=== PATIENT | female | born 1960 | race Caucasian/White ===

== ENCOUNTER 2019-04-11 13:33 | Outpatient (CLI) | payer BC, OTHER, SELFPAY ==
--- NOTE | ~2019-04-11 | MM_ITS ---
EXAMINATION: MM scrn angelika implant BI w soni HISTORY: Screening mammogram TECHNIQUE: Craniocaudal and mediolateral oblique 3-D tomosynthesis images with implant displacement a nd synthetic 2-D images were generated. Craniocaudal and mediolateral oblique views of the breasts wi thout implant displacement were obtained using full field digital mammography. CAD analysis was submi tted and interpreted. COMPARISON: 03/21/2018, 11/30/2016, 05/29/2015 bilateral implant digital screening mammogram examination s BREAST PARENCHYMAL COMPOSITION: The breasts are heterogeneously dense, which may obscure small masses . FINDINGS: Status post bilateral augmentation mammoplasty.. Bilateral benign calcifications are noted. There is no evidence of suspicious mass, calcification, or architectural distortion to suggest malignancy in either breast. There has been no suspicious interv al change. IMPRESSION: 1. No mammographic evidence of malignancy. 2. Recommend routine screening mammography in one year. BI-RADS Category 2: Benign finding(s). Reviewed, dictated and finalized at location A. APPER
== END 2019-04-11 13:34 | disposition home or self-care (01) ==
LOC: ANHIMG 13:37
PROVIDERS: PCP Internal Medicine; Visit Provider Obstetrics & Gynecology
DX: Z12.31 Encounter for screening mammogram for malignant neoplasm of breast (principal)
CPT/HCPCS: 77063; 77067

== ENCOUNTER 2019-09-05 14:42 | Outpatient (CLI) | payer OTHER, SELFPAY ==
--- NOTE | ~2019-09-05 | XR_ITS ---
XR foot RT min 3V DATE: 09/05/2019 15:05 INDICATION: Right metatarsal pain for one to 2 months TECHNIQUE: 4 views COMPARISON: None FINDINGS: There is a small plantar calcaneal spur. No fracture or dislocation, periosteal reaction or bone destruction. IMPRESSION: Small plantar calcaneal spur Reviewed, dictated and finalized at location B.
== END 2019-09-05 14:43 | disposition home or self-care (01) ==
PROVIDERS: PCP Internal Medicine; Visit Provider Internal Medicine
DX: M79.671 Pain in right foot (principal); M77.31 Calcaneal spur, right foot
CPT/HCPCS: 73630

== ENCOUNTER → 2020-01-23 09:23 | Outpatient (CLI) | payer OTHER, SELFPAY ==
--- NOTE | ~2020-01-23 | MR_ITS ---
EXAMINATION: MR ankle RT wo con DATE: 01/23/2020 10:02 INDICATION: Fracture of anterior tendon, right foot. Right ankle pain. TECHNIQUE: Magnetic resonance imaging (MRI) of the right ankle was performed without intravenous cont rast. Sequences included sagittal PD-weighted FS FSE, sagittal PD-weighted FSE, coronal PD-weighted F S FSE, coronal PD-weighted FSE, axial PD-weighted FS FSE, and axial PD-weighted FSE. COMPARISON: Right foot radiographs 09/05/2019 FINDINGS: Medial ankle ligaments: The superficial and deep components of the deltoid ligament are normal. Lateral ankle ligaments: There is an old avulsion fracture of anteroinferior aspect of lateral malleolus at the attachment of anterior talofibular ligament. Posterior talofibular ligament is normal. There are changes of prior s prain of an calcaneofibular ligament characterized with thickening and increased signal intensity. Th ere are changes of prior sprain of anterior tibiofibular ligament characterized by thickening and inc reased signal intensity. Posterior tibiofibular ligament is normal. Tendons: There are longitudinal split tears of peroneus brevis tendon and peroneus longus tendon. There is mil d Achilles tendinopathy. The medial ankle tendons are normal. There is a complete tear of distal ante rior tibial tendon with 4-5 cm gap. A skin marker overlies this area. There is a small hematoma adjac ent to the torn distal tendon. Plantar fascia: There is thickening and increased signal involving central band of plantar fascia with an enthesophyt e at the calcaneal attachment. Bones/other: There is mild osteoarthritis of ankle joint and some of the midfoot joints. There is moderate osteoar thritis of the naviculocuneiform joint with bone marrow edema in the navicular and intermediate cunei form. Fluid: There is no joint effusion. IMPRESSION: 1. Complete tear of anterior tibial tendon. 2. Longitudinal split tears of peroneus brevis tendon and peroneus longus tendon. 3. Polyarticular osteoarthritis. 4. Plantar fasciitis. Reviewed, dictated and finalized at location A. T CLOSER IMPRESSION: 1. Complete tear of anterior tibial tendon. 2. Longitudinal split tears of peroneus brevis tendon and peroneus longus tendo n. 3. Polyarticular osteoarthritis. 4. Plantar fasciitis.
== END ==
PROVIDERS: PCP Internal Medicine; Visit Provider Podiatrist Foot & Ankle Surgery
DX: S86.211A Strain of muscle(s) and tendon(s) of anterior muscle group at lower leg level, right leg, initial encounter (principal); S96.811A Strain of other specified muscles and tendons at ankle and foot level, right foot, initial encounter; M19.071 Primary osteoarthritis, right ankle and foot; M72.2 Plantar fascial fibromatosis
CPT/HCPCS: 73721

== ENCOUNTER 2020-01-29 01:59 | Outpatient (CLI) | payer OTHER, SELFPAY ==
[2020-01-29 19:16] LABS: SARS-CoV-2 RNA PCR Negative
== END 2020-01-29 02:00 | disposition home or self-care (01) ==
LOC: ANHCOVIDDT 02:00
PROVIDERS: PCP Internal Medicine; Visit Provider Podiatrist Foot & Ankle Surgery
DX: Z01.812 Encounter for preprocedural laboratory examination (principal); Z20.828 Contact with and (suspected) exposure to other viral communicable diseases
CPT/HCPCS: 87635; C9803; U0003

== ENCOUNTER 2020-02-01 01:27 | Day surgery (SDC) | payer OTHER, SELFPAY ==
[2020-01-29 09:45] VITALS: BMI 25.6
--- NOTE | ~2020-02-01 | XR_ITS ---
EXAMINATION: XR surgery orthopedic DATE: 02/01/2020 16:17 INDICATION: Right foot arthrodesis TECHNIQUE: 4 fluoroscopic spot images of the right midfoot were obtained during procedure performed soy Sargent. Radiologist was not present for the imaging or procedure. The amount of fluoroscopy t ben used during this procedure was 0.5 minutes. COMPARISON: None. FINDINGS: First tarsal metatarsal arthrodesis with fixation with a pair of dorsal christina. Alignment appears to remain essentially anatomic. No fractures identified. Remaining joint spaces appear normal. IMPRESSION: 1. Right first tarsal metatarsal arthrodesis with staple fixation. See procedure note for further det ail. Reviewed, dictated and finalized at location A. ER WELDER IMPRESSION: 1. Right first tarsal metatarsal arthrodesis with staple fixation. See procedur e note for further detail.
[2020-02-01 11:35] VITALS: BP 148/81; PULSE 74; RESP 20; TEMP 37.3; O2SAT 100
[2020-02-01] MEDS: LACTATED RINGERS 1,000 ML 30 ML IV CONT ×2 (11:53→17:02)
--- NOTE | 2020-02-01 11:57 | WPDANESEPPF ---
Anes - Initial Pre Proc Eval Procedure: Operation Date: 02/01/20 13:30 Proposed Procedures p Repair Of Tibialis Anterior Tendon Right Foot - Fabien Sargent JR, MD s Arthrodesis of Right Medial Navicular Cuneiform Joint - Fabien Sargent JR, MD Date/Time: 02/01/20 11:57 Surgeon: Fabien Sargent JR, MD Pre Op Diagnosis: Rupture Of Tibialis Anterior Tendon Right Foot,Art Patient Data Age: 59 Gender: F Height: 5 ft 10 in Weight: 81 kg Allergies Allergy/AdvReac Type Severity Reaction Status Date / Time No Known Allergies Allergy Verified 01/29/20 09:43 Home Medications Medication Instructions Recorded Confirmed Type cholecalciferol (vitamin D3) 25 25 mcg PO DAILY 10/11/19 01/29/20 History mcg (1,000 unit) capsule tramadol 50 mg tablet 100 mg PO Q4H PRN #120 tablet 01/14/20 01/29/20 Rx Patient hx anesthesia problems: none Family hx anesthesia problems: none PMFSH Past Medical History Medical History BMI 26.0-26.9,adult DJD (degenerative joint disease), multiple sites Encounter for routine adult health examination without abnormal findings FHx: type 2 diabetes mellitus Hematoma Hx of colonic polyps 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 Peripheral neuropathy Right foot pain Tarsal tunnel syndrome of right side Trochanteric bursitis, right hip Varicose veins of both lower extremities Surgical History Surgical History H/O spinal fusion (~01/2019) 2019 Family History Family History Sibling Family history of obesity Patient's sister is in good health Family history of elevated blood lipids Family history of diabetes mellitus in first degree relative Mother Family history of malignant neoplasm of ovary Family history of arthritis Father Family history of malignant neoplasm Social History Social History Years smoked: 5 Smoking status: Former smoker Additional smoking assessment comments: 1 PACK/WEEK X 5 YEARS IN HER 20'S Alcohol intake: current Alcohol use details: 1-2 DRINKS/MONTH Substance use: never Living arrangements: alone Spiritual care concerns: No Anes - Eval Final PreProcedure Day of Procedure 02/01/20 11:57 Patient weight: normal Heart: regular rate and rhythm Lungs: clear to auscultation Airway: Mallampati scale class II Neurological: alert and oriented Last oral intake: >/= 8 hours ASA classification: II Emergent: no Anesthetic plan: proceed Anesthesia type and monitoring: general LMA and standard monitoring Informed Consent: The patient's anesthetic plan and its attendant risks and benefits were discussed with the patient/family/POA. Questions were solicited and answers provided to the satisfaction of the patient/family/POA.
--- NOTE | 2020-02-01 13:13 | WPDHPUPDATE1 ---
History and Physical Update Update Date/Time: 02/01/20 13:13 History and Physical has been reviewed, including an updated exam of the patient. There are NO changes in the patient's condition. Risks, benefits, and alternatives have been discussed and questions answered. Patient agrees to proceed with procedure.
--- NOTE | 2020-02-01 13:50 | WPDANESPNB ---
Anes - Peripheral Nerve Block Date/Time: 02/01/20 13:50 I have discussed with the patient/family/POA the placement of a peripheral nerve block for post-operative pain management, including associated risks, benefits, complications, and side effects. Alternative methods of post-operative analgesia were detailed. Questions were solicited and answers provided to the satisfaction of the patient/family/POA. Time-Out: A pre-procedural Time-Out was completed immediately before starting the procedure and confirmed: Patient Identification, Site, Procedure, Patient Position and the Availability of Requisite Equipment. Clinical Indications: Acute post-operative pain management requested by the operative surgeon. Nerve Block Insertion Note Anes-nerve block: posterior fossa sciatic right Patient position: supine Skin prep: chlorhexidine Needle: 22 gauge, stimulating, insulated echogenic needle. Needle length: 80 mm Technique: nerve stimulation lost at (mA) (0.3) Technique comment: mid2mg,[id number] Injectate: bupivacaine 0.5% with epi 5 mcg/ml (30ml no epi) and dexamethasone (mg) (4mg) Observations: tolerated well Complications: none Procedure start time:: 134 Procedure end time:: 1347
[2020-02-01] MEDS: ceFAZolin 2 GM/D5W 50 ML 2 GM/50 ML BAG IVPB (14:29)
--- NOTE | 2020-02-01 15:53 | SUR.OPER ---
Malik Variax Foot B System/ right foot 2-stienman pins [id number] x2 1-Vitoss BBTrauma Bone Graft Substitue mixed with 2.5cc NS/Lot [id number] Exp 2021-01-25. 2-EasyClip [id number] Lot [id number] Exp 2022--x1 3-EasyClip [id number] Lot [id number] Exp 2024-03-30. x1
[2020-02-01] MEDS: BUPIVACAINE HCL 0.5% PF 30 ML VIAL INFILTRATE (16:49)
[2020-02-01 17:02] VITALS: BP 119/76; PULSE 86; RESP 12; TEMP 36.3; O2SAT 99
--- NOTE | 2020-02-01 17:04 | SUR.OPER ---
right foot implants Vitoss BBtrauma bone graft substitue/Lot [id number],Exp 2021-01-25 mixed with 2.5ml NS preparation x1 EasyClip Compression Staple [id number], lot [id number], Exp 2022-03-30. x1 EasyClip Compression Staple [id number], lot [id number], Exp 2024-03-30. x1 Mini Quickanchor Plus (#2/0 suture), Lot [id number], Exp 2022-03-30. x1 Larry Cross Allosource p/c [id number], id [id number] Exp 06/01/2020. x1
[2020-02-01 17:15] VITALS: BP 121/73; PULSE 85; RESP 16; O2SAT 97
--- NOTE | 2020-02-01 17:22 | PM.PROC ---
Procedure Note - Detailed Date of procedure: 02/01/20 Pre-op diagnosis: Rupture Of Tibialis Anterior Tendon Right Foot,Art Arthritis of the right foot Post-op diagnosis: same Procedure performed: 1. Repair of tibialis anterior tendon right foot 2. Arthrodesis of the medial navicular cuneiform joint right foot Implants: 1. 2.5mm mini Mitek anchor 2. Gracilis autograft 3. 1 Sherburn 15mm compression staple 4. 1 Sherburn 18mm compression staple 5. Sherburn Vitoss Bone Graft Substitute 6. 2 Fiberwire Suture Arthrex 7. 2-0, 3-0, and 4-0 Vicryl, 4-0 Monocryl Anesthesia: GLMA and regional Surgeon: Fabien Sargent JR, DPM Estimated blood loss (mL): 10 Tourniquet time (min): 121 Drains: No Packing: No Pathology: none sent Complications: No immediate complications Condition: stable Disposition: same day Findings: Procedure in detail: Under mild sedation the Patient was brought into the operating room and placed on the operating table in the supine position. pneumatic thigh tourniquet was placed about the patient's right thigh. Following general anesthesia and a previous popliteal fossa block the foot and distal leg was scrubbed in the usual aseptic manner. An Esmarch bandage was used to exsanguinate the patient's right foot and ankle and a pneumatic thigh tourniquet was inflated to 300mmHg. Attention was directed to the dorsal aspect of the right foot and anterior medial ankle, a large curvilinear incision was made starting along the distal medial cuneiform and extending above the level of the ankle. The incision was made medial to the tibialis anterior tendon. All bleeders were ligated and cauterized as necessary. The dorsal medial aspect of the medial navicular cuneiform joint was incised. I reflected the intact healthy insertional stump of the tibialis anterior tendon dorsally . I used two 2mm Steinmann pins to drill proximal and distal to the joint, then a joint distractor was used to open the joint and allow visualization. Osteophytes were resected with a rongeur. There was loss and denudation of the cartilage already noticed, this was consistent with arthrosis of the joint. I used a curette and cartilage debridement tool provided in the [employer] joint preperation kit to remove the degenerative cartilage. Next, I drilled the subchondral bone with a 2.0mm drill bit. I flushed the cartilage and subchondral bone from the operative site with copious amounts of sterile saline. I further fenestrated the joint with a small osteotome and mallet. I used Malik Vitoss bone substitute to pack into the joint to fill any cavities of missing bone. Next, utlized a 2.0 drill bit and the provided Sherburn staple positioning guide to fixate the fusion site with standard principles and technique. Excellent compression was noted with after insertion of the dorsal 15mm staple and dorsal medial 18mm staple. I flushed the wound with sterile saline and repaired the capsule with 2-0 Vicryl with simple interrupted suture technique. At this point the tendon sheath to the tibialis anterior tendon was incised. The distal most portion of the superior retinaculum was also partially incised. This exposed the entire tibialis anterior tendon rupture. The rupture started 4 cm proximal to the insertion of the tendon and extended just distal to the ankle joint. The proximal portions of the insertion stump was healthy and intact. There was approximately a 3 centimeter gap present and the rupture ends were frayed some hematoma was already being organized and approximating the ruptured ends. I utilized 3-0 vicryl to bring the ruptured ends together while maximally dorsiflexing the ankle joint. Next a Mitek Bone anchor was placed medial but adjacent to the insertion of the tibialis anterior tendon. I thawed out a Gracilis allowgraft in sterile saline. A Modifield Bunnel suture technique was used to anchor the allograft near the anatomic portion of the tibialis anterior tendon with the ankle held in ma
[2020-02-01 17:28] VITALS: BP 111/65; PULSE 85; RESP 16; O2SAT 96
[2020-02-01] MEDS: fentaNYL CITRATE INJ (*CRX) 100 MCG/2 ML VIAL 25 MCG IV PUSH ×4 (17:31→17:37)
[2020-02-01 17:34] VITALS: BP 138/67; PULSE 87; RESP 16
[2020-02-01 18:04] VITALS: BP 123/72; PULSE 85; RESP 16
== END 2020-02-01 18:15 | disposition home or self-care (01) ==
PROVIDERS: PCP Internal Medicine; Visit Provider Podiatrist Foot & Ankle Surgery
PROC: (CPT 27650; principal; 2020-02-01 13:30)
PROC: (CPT 28750; 2020-02-01 13:30)
DX: S86.211A Strain of muscle(s) and tendon(s) of anterior muscle group at lower leg level, right leg, initial encounter (principal); M19.071 Primary osteoarthritis, right ankle and foot; G89.18 Other acute postprocedural pain; G62.9 Polyneuropathy, unspecified; Z87.891 Personal history of nicotine dependence; X58.XXXA Exposure to other specified factors, initial encounter
CPT/HCPCS: 28730; 28208; 64445; 87635; A9270; C1713; C9803; J0360; J0690; J1100; J2250; J2405; J2704; J3010; J7120; U0003

== ENCOUNTER 2020-03-19 12:22 | Outpatient (CLI) | payer OTHER, SELFPAY ==
--- NOTE | ~2020-03-19 | XR_ITS ---
EXAMINATION: XR hand RT 2V EXAM DATE: 03/19/2020 12:48 INDICATION: Injury X 10 Days Rt Hand, Attn: Index Finger Swelling. TECHNIQUE: Frontal and lateral projections of the right hand. There is no prior study for comparison . FINDINGS: There is acute closed posttraumatic nondisplaced fracture of the right 2nd proximal phalang eal shaft. There is overlying soft tissue swelling. Polyarticular primary osteoarthritis, moderate at the 3rd proximal interphalangeal joint and 1st carp ometacarpal joint. Less osteoarthritis of other interphalangeal joints. There are no bony erosions id entified. IMPRESSION: Right 2nd proximal phalangeal nondisplaced fracture. Reviewed, dictated and finalized at location A. SHEARING SUPERVISOR
== END 2020-03-19 12:23 | disposition home or self-care (01) ==
LOC: ANHIMG 12:26
PROVIDERS: Family Provider Internal Medicine; PCP Internal Medicine; Visit Provider Internal Medicine
DX: S62.91XA Unspecified fracture of right hand, initial encounter for closed fracture (principal)
CPT/HCPCS: 73120

== ENCOUNTER → 2020-04-30 15:26 | Outpatient (CLI) | payer OTHER, SELFPAY ==
--- NOTE | ~2020-04-30 | XR_ITS ---
EXAMINATION: XR finger 2nd RT min 2V DATE: 04/30/2020 15:39 INDICATION: Fracture of the right second digit with persistent swelling and stiffness. TECHNIQUE: Dorsal palmar, lateral and 2 oblique views of the right second digit were obtained COMPARISON: None FINDINGS: There is prominent callus formation which appears bridging across the mid diaphyseal fracture of the right second proximal phalanx. There is persistent lucency along the fracture plane. There is now 20 degrees dorsal angulation of the fracture which was previously in essentially anatomic alignment. No other fractures identified. Polyarticular osteoarthritis, severe at the first carpometacarpal joint, moderate severity at the third proximal interphalangeal joint and mild at the triscaphe, first and se cond metacarpophalangeal and second proximal and distal interphalangeal joints. Persistent soft tissu e swelling about the second proximal phalanx. IMPRESSION: 1. Progressive healing of a mid diaphyseal fracture of the right second proximal phalanx with new 20 degrees dorsal angulation. Reviewed, dictated and finalized at location B. TITCHER IMPRESSION: 1. Progressive healing of a mid diaphyseal fracture of the right second proxima l phalanx with new 20 degrees dorsal angulation.
== END ==
PROVIDERS: PCP Internal Medicine; Visit Provider Plastic Surgery
DX: S62.640D Nondisplaced fracture of proximal phalanx of right index finger, subsequent encounter for fracture with routine healing (principal)
CPT/HCPCS: 73140

== ENCOUNTER 2020-05-02 15:44 | Outpatient (CLI) | payer OTHER, SELFPAY | END 2020-05-02 15:45 | disposition home or self-care (01) | LOC: ANHCOVIDVC 15:44 | PROVIDERS: PCP Internal Medicine | DX: Z23 Encounter for immunization (principal) | CPT/HCPCS: 0001A; 91300 ==

== ENCOUNTER 2020-05-23 15:49 | Outpatient (CLI) | payer OTHER, SELFPAY | END 2020-05-23 15:50 | disposition home or self-care (01) | LOC: ANHCOVIDVC 15:49 | PROVIDERS: PCP Internal Medicine | DX: Z23 Encounter for immunization (principal) | CPT/HCPCS: 0002A; 91300 ==

== ENCOUNTER 2020-10-29 12:54 | Outpatient (CLI) | payer OTHER, SELFPAY ==
--- NOTE | ~2020-10-29 | MM_ITS ---
EXAMINATION: MM scrn angelika implant BI w soni HISTORY: Screening mammogram TECHNIQUE: Craniocaudal and mediolateral oblique 3-D tomosynthesis images with implant displacement a nd synthetic 2-D images were generated. Craniocaudal and mediolateral oblique views of the breasts wi thout implant displacement were obtained using full field digital mammography. CAD analysis was submi tted and interpreted. COMPARISON: Comparison to multiple prior studies sequentially, with oldest reviewed study dated 12/29. BREAST PARENCHYMAL COMPOSITION: There are scattered areas of fibroglandular density. FINDINGS: Bilateral breast asymmetries and calcifications are stable. There are bilateral subpectoral silicone implants. There is no evidence of suspicious mass, calcification, or architectural distorti on to suggest malignancy in either breast. There has been no suspicious interval change. IMPRESSION: 1. No mammographic evidence of malignancy. 2. Recommend routine screening mammography in one year. BI-RADS Category 2: Benign finding(s). Reviewed, dictated and finalized at location A.
== END 2020-10-29 12:55 | disposition home or self-care (01) ==
LOC: ANHIMG 12:56
PROVIDERS: PCP Internal Medicine; Visit Provider Obstetrics & Gynecology
DX: Z12.31 Encounter for screening mammogram for malignant neoplasm of breast (principal)
CPT/HCPCS: 77063; 77067

== ENCOUNTER 2021-09-13 16:17 | Observation (INO) | payer OTHER, SELFPAY ==
[2021-09-13] VITALS (12 sets, daily range): BP systolic 123–149; BP diastolic 65–99; PULSE 78–97; RESP 16–18; TEMP 36.8–37.1; O2SAT 95–100; BMI 28.2
--- NOTE | ~2021-09-13 | CT_ITS ---
EXAMINATION: CT abdomen pelvis w con DATE: 09/13/2021 20:24 INDICATION: rlq pain, tenderness TECHNIQUE: Computed tomography (CT) of the abdomen and pelvis was performed with 100 mL Omnipaque-300 intravenous contrast. Automated exposure control and iterative reconstruction technique were employe d. The dose-length product was 653.09 mGy-cm. COMPARISON: MRI right hip 07/07/2018. FINDINGS: Lower thorax: Bilateral breast augmentation. Coronary artery calcification. Small hiatal hernia. Liver: Normal. Biliary/Gallbladder: Gallbladder is normal. No bile duct dilation. Pancreas: No mass or duct dilation. Spleen: Normal. Adrenals:No mass. Kidneys: No mass, stone, or hydronephrosis. GI tract: No small or large bowel dilation. The appendix is dilated. Moderate-severe surrounding infl ammatory change with reactive fluid. The majority of the mucosa the appendix enhances uniformly howev er there is slight irregularity and hypoenhancement near the base of the appendix. No free air or loc alized fluid collection. Mesentery/Peritoneum: No ascites, mass, or free air. Retroperitoneum: No mass. Atherosclerotic abdominal aortic and/or arterial calcifications. Pelvis: Multiple pelvic masses likely representing uterine fibroids including a 10.8 cm soft tissue m ass filling the majority of the deep left pelvis, reported as fibroids in the prior hip MRI. Soft Tissues: Soft tissues and body wall unremarkable. Bones: Uncomplicated appearing lumbar fusion. Incompletely visualized but otherwise uncomplicated ap pearing left hip arthroplasty. No acute osseous finding. IMPRESSION: Acute appendicitis with significant surrounding inflammatory change and irregular mucosal enhancement may herald the presence of early wall necrosis. Reviewed, dictated and finalized at location K. IMPRESSION: Acute appendicitis with significant surrounding inflammatory change and irregul ar mucosal enhancement may herald the presence of early wall necrosis.
--- NOTE | 2021-09-13 16:23 | PC.NURSE ---
PT REPORT MENOPAUSE 10 YEARS SO TEST CANCELED
[2021-09-13 16:47] LABS: Basophils Percent Auto 0.2 % (0.2-1.2); Eosinophils Absolute Auto 0.1 K/mm3 (0-0.3); Eosinophils Percent Auto 0.5 % (0-4.4); Hematocrit 39.1 % (37.0-47.0); Hemoglobin 12.9 g/dL (12.0-15.0); Immature Granulocyte Absolute 0.03 K/mm3 (0.00-0.031); Immature Granulocyte Percent A 0.3 % (0-0.5); Lymphocytes Absolute Auto 1.24 K/mm3 (0.9-3.2); Lymphocytes Percent Auto 12.1 % (18.3-44.2); Mean Corpuscular Hemoglobin 28.9 pg (26-34); Mean Corpuscular Volume 87.5 fl (80-100); Mean Platelet Volume 9.6 fl (7.4-10.4); Monocytes Absolute Auto 0.7 K/mm3 (0.1-0.6); Monocytes Percent Auto 6.8 % (2.6-8.5); Neutrophils Absolute Auto 8.2 K/mm3 (1.3-6.7); Neutrophils Percent Auto 80.1 % (45.5-73.1); Platelet Count Result 222 k/mm3 (150-375); Red Blood Count 4.47 M/mm3 (4.2-5.4); Red Cell Distribution Width 14.6 % (11.5-14.5); White Blood Count 10.3 K/mm3 (4.5-10.0)
[2021-09-13 17:00] LABS: Alanine Aminotransferase 20 U/L (6-35); Albumin Level 4.4 g/dL (3.5-5.1); Alkaline Phosphatase 79 U/L (38-126); Anion Gap 8 mmol/L (8-16); Aspartate Amino Transferase 24 U/L (14-36); Bilirubin,Total 0.4 mg/dL (0.2-1.3); Blood Urea Nitrogen 13 mg/dL (7-17); Calcium 9.3 mg/dL (8.4-10.2); Carbon Dioxide 26 mmol/L (22-30); Chloride 102 mmol/L (98-107); Estimated Glomerular Filt Rate > 60; Glucose 109 mg/dL (65-110); Lipase 35 U/L (23-300); Potassium 3.9 mmol/L (3.4-5.0); Sodium 136 mmol/L (137-145)
[2021-09-13 18:33] LABS: Appearance Urine Clear (Clear); Bilirubin Urine Negative (Negative); Blood Urine 2+ (Negative); Color Urine Yellow (Yellow); Glucose Urine UA Negative (Negative); Ketones Urine Trace mg/dL (Negative); Leukocyte Esterase Ur Negative LEU/UL (Negative); Nitrate Urine Negative (Negative); Protein Urine Negative (Negative); Urobilinogen Urine 0.2 mg/dL (<2.0); pH Urine 6.5 (5.0-9.0)
[2021-09-13 18:36] LABS: Squamous Epithelial Cell Urine Few /hpf (Few); WBC Urine 0-3 /hpf
[2021-09-13 18:37] LABS: Add Urine Microscopic? YES
[2021-09-13] MEDS: MORPHINE SULFATE (*CRX) 4 MG/ML INJ IV PUSH ×2 (20:26→22:51)
--- NOTE | 2021-09-13 21:10 | ED.ABDPAIN ---
HPI - Abdominal Pain General Chief Complaint: Abdominal Pain Stated Complaint: RLQ pain, super gassy Time Seen by Provider: 09/13/21 19:51 History of Present Illness HPI narrative: Patient is a 61-year-old healthy female here for evaluation of right lower quadrant abdominal pain today. Patient states that the pain came on about 5 hours prior to arrival to the emergency department. States that the pain is constant in nature, is throbbing and remains in her right lower quadrant. Denies radiation. Denies nausea or vomiting but does have decreased appetite today intake was about 9:00 today which was a smoothie. denies fevers, constipation, diarrhea. Has not attempted any medication for pain. No history of abdominal surgeries. Related Data Allergies Allergy/AdvReac Type Severity Reaction Status Date / Time No Known Allergies Allergy Verified 09/13/21 21:13 Review of Systems Review of Systems: Gen: Denies fevers or chills Eyes: Denies eye pain or visual change ENT: Denies congestion Respiratory: Denies shortness of breath or cough CV: Denies chest pain or palpitations GI: Reports abdominal pain, nausea. : denies burning, urgency, frequency or hematuria Musculoskeletal: Denies back pain or muscle pain Neuro: Denies numbness, tingling, weakness or focal weakness Skin: Denies rash Except as documented, all other systems reviewed and negative [facility] Past Medical History Medical History BMI 25.0-25.9,adult BMI 26.0-26.9,adult BMI 27.0-27.9,adult Breast cancer screening Chronic pain Colon cancer screening DJD (degenerative joint disease), multiple sites Encounter for routine adult health examination without abnormal findings FHx: type 2 diabetes mellitus Hematoma History of COVID-19 Hx of colonic polyps 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 Paresthesia of both hands Peripheral neuropathy Pre-diabetes Right foot pain Tarsal tunnel syndrome of right side Trochanteric bursitis, right hip Varicose veins of both lower extremities Vitamin D deficiency Surgical History Surgical History H/O spinal fusion (~01/2019) 2019 History of bilateral knee arthroplasty (~04/2012) History of total left hip arthroplasty (~02/2017) S/P tendon repair Family History Family History Sibling Family history of obesity Patient's sister is in good health Family history of elevated blood lipids Family history of diabetes mellitus in first degree relative Mother Family history of malignant neoplasm of ovary Family history of arthritis Father Family history of malignant neoplasm Social History Social History Years smoked: 5 Smoking status: Never smoker Additional smoking assessment comments: 1 PACK/WEEK X 5 YEARS IN HER 20'S Alcohol intake: current Drinks per week: 4 Alcohol use details: 1-2 DRINKS/MONTH Substance use: never Spiritual care concerns: No Exam Narrative: APPEARANCE: Well appearing, no pain in distress, well-nourished. Head: Normocephalic and atraumatic. EYES: PERRLA/EOMI, conjunctivae clear NOSE: No nasal drainage EARS: External ear normal in appearance THROAT: Oropharynx is clear. Mucous membranes are moist. NECK: Supple. No adenopathy, no masses. RESPIRATORY: Airway patent, respirations nonlabored. Clear to auscultation bilaterally, no rales, rhonchi, wheezing. CARDIOVASCULAR: Regular rate and rhythm without murmurs, rubs, or gallops. ABDOMINAL: Tender in right lower quadrant with involuntary guarding. No rebound tenderness. MUSCULOSKELETAL: Extremities are warm and well-perfused. Moves all extremities well. No edema. NEURO: Normal speech. No focal neurologic deficits. SKIN: Skin is warm and dry. No rashes. PSYCHIATRIC: Normal affect/mood. Course Consultations Consult
[2021-09-13] MEDS: SODIUM CHLORIDE 0.9% IV 1,000 ML 999 ML IV CONT (21:20)
--- NOTE | 2021-09-13 21:35 | PM.IMHP ---
H&P: HPI History of Present Illness Date/Time: 09/13/21 21:35 Chief Complaint: Abdominal pain Narrative: This is a 61-year-old female with past medical history significant for type 2 diabetes mellitus, dyslipidemia, degenerative joint disease. Presents to the emergency room due to right lower quadrant abdominal pain and poor appetite for the last day or so denies any nausea or vomiting had chills but no fevers denies any diarrhea, no changes in stool character. Patient has been in her usual state of health up until this time. Preliminary workup was significant for acute appendicitis with significant surrounding inflammatory change and irregular mucosal enhancement may herald the presence of early wall necrosis. Patient is been admitted for further evaluation management and treatment. Review of Systems Review of Systems: Right lower quadrant pain poor appetite chills Constitutional: Constitutional: Reports chills and Reports poor appetite Eyes: Eyes: Denies change in vision ENT: Denies dysphagia, Denies vertigo, Denies dizziness, Denies nasal congestion, Denies nasal discharge, Denies nasal obstruction and Denies odynophagia Cardiovascular: Cardiovascular: Denies chest pain, Denies syncope, Denies irregular heart rhythm, Denies lightheadedness, Denies palpitations and Denies dyspnea on exertion Respiratory: Respiratory: Denies cough, Denies excessive phlegm production and Denies dyspnea Gastrointestinal: Gastrointestinal: Reports abdominal pain (Right lower quadrant), Denies dyspepsia, Denies heartburn, Denies nausea and Denies vomiting Genitourinary: Genitourinary: Denies dysuria Musculoskeletal: Musculoskeletal: Denies back pain, Denies myalgias, Denies arthralgias and Denies joint swelling Integumentary/Breasts: Skin/Breast: Denies rash Neurologic: Denies vertigo, Denies dizziness, Denies focal weakness and Denies Sensory deficit (Neuro) Psychiatric: Psychiatric: Reports no additional psychiatric complaints and Reports as per HPI Endocrine: Endocrine: Denies cold intolerance, Denies fatigue, Denies flushing, Denies heat intolerance, Denies polyphagia, Denies polydipsia and Denies palpitations Hematologic/Lymphatic: Hematologic/Lymphatic: Reports no additional hematologic/lymphatic complaints and Reports as per HPI Allergic/Immunologic: Allergic/Immunologic: Reports no additional allergic/immunologic complaints PMFSH Past Medical History Medical History BMI 25.0-25.9,adult BMI 26.0-26.9,adult BMI 27.0-27.9,adult Breast cancer screening Chronic pain Colon cancer screening DJD (degenerative joint disease), multiple sites Encounter for routine adult health examination without abnormal findings FHx: type 2 diabetes mellitus Hematoma History of COVID-19 Hx of colonic polyps 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 Paresthesia of both hands Peripheral neuropathy Pre-diabetes Right foot pain Tarsal tunnel syndrome of right side Trochanteric bursitis, right hip Varicose veins of both lower extremities Vitamin D deficiency Surgical History Surgical History H/O spinal fusion (~01/2019) 2019 History of bilateral knee arthroplasty (~04/2012) History of total left hip arthroplasty (~02/2017) S/P tendon repair Family History Family History Sibling Family history of obesity Patient's sister is in good health Family history of elevated blood lipids Family history of diabetes mellitus in first degree relative Mother Family history of malignant neoplasm of ovary Family history of arthritis Father Family history of malignant neoplasm Social History Social History Years smoked: 5 Smoking status: Never smoker Additional smoking assessment comments: 1 PACK/WEEK X 5 YEARS IN HER 20'S Alcohol int
[2021-09-13 21:39] LABS: Lactic Acid Reflex 0.6 mmol/L (0.7-2.0)
--- NOTE | 2021-09-13 22:55 | ADMGEN ---
This patient, Maryanne Cedeno, was admitted to 2 Medical Room 257-01. Patient/family oriented to hospital policies and general routines including ID bracelet, bed and alarms, visiting hours, pain management, procedures, bathroom and other care routines, personal items, smoking policy, room service/diet, and visiting hours. Information on how to activate the Rapid Response Team has been discussed. Patient/Family are encouraged to report perceived risks to care and to ask questions if they do not understand what they are told or what they should do.
[2021-09-14] VITALS (15 sets, daily range): BP systolic 113–138; BP diastolic 59–88; PULSE 70–91; RESP 11–21; TEMP 36.2–37; O2SAT 94–100
[2021-09-14] MEDS: DEXTROSE 5%/0.45% SOD CHL 1,000 ML 75 ML IV CONT (01:37)
[2021-09-14 06:14] LABS: Basophils Percent Auto 0.3 % (0.2-1.2); Eosinophils Absolute Auto 0.1 K/mm3 (0-0.3); Eosinophils Percent Auto 1.9 % (0-4.4); Hematocrit 35.5 % (37.0-47.0); Hemoglobin 11.2 g/dL (12.0-15.0); Immature Granulocyte Absolute 0.02 K/mm3 (0.00-0.031); Immature Granulocyte Percent A 0.3 % (0-0.5); Lymphocytes Absolute Auto 1.29 K/mm3 (0.9-3.2); Lymphocytes Percent Auto 20.6 % (18.3-44.2); Mean Corpuscular HGB Conc 31.5 g/dl (32-36); Mean Corpuscular Hemoglobin 28.8 pg (26-34); Mean Corpuscular Volume 91.3 fl (80-100); Mean Platelet Volume 9.2 fl (7.4-10.4); Monocytes Absolute Auto 0.8 K/mm3 (0.1-0.6); Monocytes Percent Auto 13.1 % (2.6-8.5); Neutrophils Percent Auto 63.8 % (45.5-73.1); Platelet Count Result 173 k/mm3 (150-375); Red Blood Count 3.89 M/mm3 (4.2-5.4); Red Cell Distribution Width 14.8 % (11.5-14.5); White Blood Count 6.3 K/mm3 (4.5-10.0)
[2021-09-14 06:27] LABS: Anion Gap 2 mmol/L (8-16); Blood Urea Nitrogen 11 mg/dL (7-17); Calcium 8.3 mg/dL (8.4-10.2); Carbon Dioxide 29 mmol/L (22-30); Chloride 107 mmol/L (98-107); Estimated CRCL calculation 89 ml/min; Estimated Glomerular Filt Rate > 60; Glucose 112 mg/dL (65-110); Potassium 3.6 mmol/L (3.4-5.0); Sodium 138 mmol/L (137-145)
[2021-09-14] MEDS: MORPHINE SULFATE (*CRX) 4 MG/ML INJ IV PUSH (08:07)
--- NOTE | 2021-09-14 09:30 | PM.CNGS ---
Assessment and Plan Assessment and plan (1) Acute appendicitis: Code(s): K35.80 - Unspecified acute appendicitis Status: Acute Assessment and Plan: CT scan reviewed and discussed with the patient in detail. There is evidence of acute appendicitis. No evidence of perforation or abscess. Discussed treatment options with the patient. We would recommend proceeding with a laparoscopic appendectomy, possible open, by Dr. Cueva under general anesthesia. Description of the procedure, risks, benefits, expected outcomes, and expected recovery were discussed with the patient in detail. All questions were answered. She agrees to proceed. Continue IV Zosyn, IV fluids, and analgesics as needed pre-operatively. We will add her onto the surgery schedule today and keep her NPO. Discussed with the patient that if she does have evidence of perforation during surgery, then this would likely lengthen her stay and she would be continued on antibiotics post-operatively. (2) DJD (degenerative joint disease), multiple sites: Qualifiers: Osteoarthritis type: unspecified Qualified Code(s): M15.9 - Polyosteoarthritis, unspecified Code(s): M15.9 - Polyosteoarthritis, unspecified Status: Acute Assessment and Plan: Takes Tramadol PRN and Tylenol. (3) Pre-diabetes: Code(s): R73.03 - Prediabetes Status: Acute Assessment and Plan: Hgb A1C in 07.02. (4) Overweight (BMI 25.0-29.9): Code(s): E66.3 - Overweight Status: Acute Plan I have discussed the patient's case and plan of care with Dr. Cueva. Thank you for allowing us to see the patient in consultation and we will continue to follow along with you. History of Present Illness Consult details Consult date: 09/14/21 Reason for consult: other (Acute appendicitis) Requesting physician: Carol Crespo PA-C Narrative: This is a 61-year-old female with a history of degenerative disc disease and prediabetes, who presented to the ER of yesterday with complaints of right lower quadrant abdominal pain. She reports initially waking up 2 days ago with generalized cramping abdominal pain. She attributed this to gas pains initially. She also reports poor appetite. Yesterday, her abdominal pain localized to the right lower quadrant and became more severe. Therefore, she presented to the ER for evaluation. CT scan of the abdomen pelvis showed acute appendicitis with irregular mucosal enhancement suggesting possibly presence of early wall necrosis, but no free air or localized fluid collection. [place] [id number]. She was admitted to the hospitalist service. She has been started on IV Zosyn, IV antibiotics, and made NPO. Our service has been consulted for surgical evaluation of acute appendicitis. She is now seen on the medical floor. She reports still having right lower quadrant abdominal pain that is relieved with IV morphine. She denies any nausea, vomiting, fever, or changes in her bowel habits. She denies any previous abdominal surgeries. She reportedly had an unremarkable colonoscopy with polypectomy 2 years ago. Review of Systems Review of Systems: All systems reviewed & are unremarkable except as noted in HPI and below Constitutional: Constitutional: Reports as per HPI, Reports no additional constitutional complaints, Reports chills, Denies fatigue, Denies fever(s) and Reports poor appetite Eyes: Eyes: Reports no additional eye complaints ENT: Reports system reviewed and no additional complaints, except as documented and Reports Normal hearing present Cardiovascular: Cardiovascular: Reports no additional cardiovascular complaints, Denies chest pain and Denies leg edema Respiratory: Respiratory: Reports no additional respiratory complaints, Denies cough and Denies dyspnea Gastrointestinal: Gastrointestinal: Reports no additional gastrointestinal complaints, Reports abdominal pain, Denies
--- NOTE | 2021-09-14 09:35 | PM.IMPN ---
Progress Note: A&P Assessment and Plan (1) Acute appendicitis: Code(s): K35.80 - Unspecified acute appendicitis Status: Acute Assessment and Plan: Monitor vital signs, I and O's, check stool output, neuro status and patient is a fall risk Monitor serum electrolytes and CBC Monitor lactic acid IV pain management Gentle IV fluid resuscitation Start Zosyn 3.375 mg every 6 hours Consult general surgery for further evaluation, appreciate assistance and recommendation Diet:NPO (2) DJD (degenerative joint disease), multiple sites: Qualifiers: Osteoarthritis type: unspecified Qualified Code(s): M15.9 - Polyosteoarthritis, unspecified Code(s): M15.9 - Polyosteoarthritis, unspecified Status: Acute Assessment and Plan: Tylenol p.r.n. (3) Right lower quadrant abdominal pain: Code(s): R10.31 - Right lower quadrant pain Status: Acute Assessment and Plan: Likely secondary to appendicitis Supportive care Subjective Date/time seen: 09/14/21 09:35 Patient is 61-year-old female who recently had COVID approximately 3 weeks ago. Patient currently complains of acute abdominal pain, she is receiving IV fluids, antibiotics and pending surgery consult. Patient denies any chest pain, shortness a breath, nausea, vomiting or diarrhea. Review of Systems Review of Systems: All systems reviewed & are unremarkable except as noted in HPI and below Exam Narrative: General: No acute distress. Mental Status: Awake, alert and oriented to person, place, and time with clear speech. Skin: Skin in warm, dry and intact without rashes or lesions. Head: Normocephalic and atraumatic. Eyes: Conjunctivae are clear without exudates or hemorrhage. Sclera is non-icteric. EOM are intact, PERRLA. Ears: The external ear and canal are non-tender and without swelling or discharge. Nose: Nasal mucosa is pink and moist. Septum midline. Nares patent bilaterally. Throat: Oral mucosa pink and moist with good dentition. Tongue midline. Neck: The neck supple without adenopathy. Trachea midline. No JVD. Cardiac: S1 and S2 regular rate and rhythm. No murmurs, gallops, or rubs auscultated. Respiratory: Chest wall symmetric, nontender and without deformity or trauma. Respirations even and unlabored. Lung sounds are clear to auscultation in all lobes bilaterally without wheezes, rhonchi, or rales. Abdominal: Abdomen soft, round and mildly-tender to palpation. Bowel sounds present and normoactive in all 4 quadrants. Spine: Neck and back with grossly normal curvature, no deformity in appearance or signs of trauma. Extremities: Upper and lower extremities atraumatic without tenderness or deformity. Full range of motion and muscle strength 5/5 to all extremities bilaterally. Neurological: Full and symmetric motor and light touch sensation bilaterally. Cranial nerves II-XII grossly intact. Objective Data Vital Signs Vital Signs: Vital Signs - 24 hr 09/13/21 16:19 09/13/21 21:12 09/13/21 19:16 Temperature 98.3 F Pulse Rate 97 94 Respiratory Rate 16 16 Blood Pressure 149/99 H 144/83 H 134/65 Pulse Oximetry 100 97 99 Oxygen Delivery Room Air 09/13/21 19:17 09/13/21 19:30 09/13/21 19:31 Temperature Pulse Rate Respiratory Rate Blood Pressure 134/74 Pulse Oximetry 96 96 95 Oxygen Delivery 09/13/21 19:45 09/13/21 19:46 09/13/21 20:00 Temperature Pulse Rate Respiratory Rate Blood Pressure 123/76 Pulse Oximetry 96 97 95 Oxygen Delivery 09/13/21 20:01 09/13/21 22:18 09/13/21 22:57 Temperature 98.8 F Pulse Rate 88 86 78 Respiratory Rate 16 18 17 Blood Pressure 127/66 134/88 127/77 Pulse Oximetry 97 98 100 Oxygen Delivery 09/14/21 04:54 Temperature 97.3 F L Pulse Rate 70 Respiratory Rate 17 Blood Pressure 114/63 Pulse Oximetry 97 Oxygen Delivery Intake/Output Intake/Output: Intake & Output 09/11/21 09/12/21 09/13/21 09/14/21 23:59
--- NOTE | 2021-09-14 10:21 | PC.NURSE ---
Report called to Avelina HARVEY Preop.
--- NOTE | 2021-09-14 11:03 | PC.NURSE ---
TO OR via stretcher. Voiding without difficulty.
--- NOTE | 2021-09-14 11:25 | WPDANESEPPF ---
Anes - Initial Pre Proc Eval Procedure: Operation Date: 09/14/21 12:00 Proposed Procedures p Laparoscopic Appendectomy - Jorge Cueva DO Date/Time: 09/14/21 11:25 Pre Op Diagnosis: Appendicitis Patient Data Age: 61 Gender: F Height: 1.78 m Weight: 89.3 kg Last Vital Signs Temp 36.3 C L 09/14/21 04:54 Pulse 70 09/14/21 04:54 Resp 18 09/14/21 08:07 BP 114/63 09/14/21 04:54 Pulse Ox 97 09/14/21 08:07 O2 Del Method Room Air 09/14/21 08:07 Allergies Allergy/AdvReac Type Severity Reaction Status Date / Time No Known Allergies Allergy Verified 09/14/21 06:54 Home Medications Medication Instructions Recorded Confirmed Type semaglutide 3 mg tablet (Rybelsus) 6 mg PO DAILY #180 tabs 03/17/21 09/13/21 Rx rosuvastatin 10 mg tablet 10 mg PO DAILY #90 tabs 04/13/21 09/13/21 Rx tramadol 50 mg tablet 100 mg PO Q4H PRN pain #120 tabs 08/21/21 09/13/21 Rx Laboratory Tests 09/13/21 09/13/21 09/13/21 16:27 16:27 18:16 WBC 10.3 K/mm3 H K/mm3 (4.5-10.0) RBC 4.47 M/mm3 M/mm3 (4.2-5.4) Hgb 12.9 g/dL g/dL (12.0-15.0) Hct 39.1 % % (37.0-47.0) MCV 87.5 fl fl (80-100) MCH 28.9 pg pg (26-34) MCHC 33.0 g/dl g/dl (32-36) RDW 14.6 % H % (11.5-14.5) Plt Count 222 k/mm3 k/mm3 (150-375) MPV 9.6 fl fl (7.4-10.4) Immature Gran % (Auto) 0.3 % % (0-0.5) Neut % (Auto) 80.1 % H % (45.5-73.1) Lymph % (Auto) 12.1 % L % (18.3-44.2) [place] % (Auto) 6.8 % % (2.6-8.5) Eos % (Auto) 0.5 % % (0-4.4) Baso % (Auto) 0.2 % % (0.2-1.2) Lymph # (Auto) 1.24 K/mm3 K/mm3 (0.9-3.2) [place] # (Auto) 0.7 K/mm3 H K/mm3 (0.1-0.6) Eos # (Auto) 0.1 K/mm3 K/mm3 (0-0.3) Baso # (Auto) 0.0 K/mm3 K/mm3 (0.0-0.1) Abs Immat Gran (auto) 0.03 K/mm3 K/mm3 (0.00-0.031) Absolute Neuts (auto) 8.2 K/mm3 H K/mm3 (1.3-6.7) Absolute Nucleated RBC 0.0 K/mm3 K/mm3 (0.0-0.012) Nucleated RBC % 0.0 % % (0.0-0.2) Sodium 136 mmol/L L mmol/L (137-145) Potassium 3.9 mmol/L mmol/L (3.4-5.0) Chloride 102 mmol/L mmol/L (98-107) Carbon Dioxide 26 mmol/L mmol/L (22-30) Anion Gap 8 mmol/L mmol/L (8-16) BUN 13 mg/dL mg/dL (7-17) Creatinine 0.80 mg/dL mg/dL (0.7-1.0) Estim Creat Clear Calc Not Reportable Estimated GFR > 60 (59 - ) Glucose 109 mg/dL mg/dL (65-110) Lactic Acid Calcium 9.3 mg/dL mg/dL (8.4-10.2) Magnesium Total Bilirubin 0.4 mg/dL mg/dL (0.2-1.3) AST 24 U/L U/L (14-36) ALT 20 U/L U/L (6-35) Alkaline Phosphatase 79 U/L U/L (38-126) Total Protein 8.0 g/dL g/dL (6.3-8.2) Albumin 4.4 g/dL g/dL (3.5-5.1) Lipase 35 U/L U/L (23-300) Urine Color Yellow (Yellow) Urine Appearance Clear (Clear) Urine pH 6.5 (5.0-9.0) Ur Specific [place] 1.010 (1.001-1.035) Urine Protein Negative mg/dL mg/dL (Negative) Urine Glucose (UA) Negative mg/dL mg/dL (Negative) Urine Ketones Trace mg/dL mg/dL (Negative) Ur Blood (Man) 2+ H (Negative) Urine Nitrate Negative (Negative) Urine Bilirubin Negative (Negative) Urine Urobilinogen 0.2 mg/dL mg/dL (<2.0) Leukocyte Esterase Rfl Negative SHERON/UL SHERON/UL (Negative) Urine RBC 6-10 /hpf H /hpf (0-2) Urine WBC 0-3 /hpf /hpf Ur Squamous Epith Cells Few /hpf /hpf (Few) 09/13/21 09/14/21 09/14/21 21:20 05:58 05:58 WBC 6.3 K/mm3 K/mm3 (4.5-10.0) RBC 3.89 M/mm3 L M/mm3 (4.2-5.4) Hgb 11.2 g/dL L g/dL (12.0-15.
[2021-09-14] MEDS: LACTATED RINGERS 1,000 ML 30 ML IV CONT ×2 (11:27→13:45)
--- NOTE | 2021-09-14 12:00 | WPDHPUPDATE1 ---
History and Physical Update Update Date/Time: 09/14/21 12:00 History and Physical has been reviewed, including an updated exam of the patient. There are NO changes in the patient's condition. Risks, benefits, and alternatives have been discussed and questions answered. Patient agrees to proceed with procedure.
[2021-09-14] MEDS: KETOROLAC 15 MG/ML VIAL (*BKC) IV PUSH (12:15)
[2021-09-14] MEDS: BUPIVACAINE/EPINEPHRINE 0.25% 50 ML VIAL INFILTRATE (13:16)
--- NOTE | 2021-09-14 13:16 | W.PM.PROC2 ---
Procedure Note - Detailed Date of Procedure 09/14/21 Pre-op Diagnosis Acute appendicitis Post-op Diagnosis Same (Perforated acute appendicitis) Procedure Performed Laparoscopic appendectomy Surgeon Jorge Cueva, DO Anesthesia General and Local (0.5% bupivacaine with epinephrine) Indications This is a 61-year-old woman who presented to the emergency department on 09/13/2021 with right lower quadrant pain that started 1 day prior. She initially was having some vague bloating and cramping abdominal pains but then eventually pain localized to the right lower quadrant. She had never experienced symptoms like this in the past. She had a slightly elevated white blood count in the emergency department and CT showed evidence of acute appendicitis. She was admitted for further treatment and was placed on Zosyn IV. Discussions were made with the patient about treatment options and decision was made to proceed with laparoscopic appendectomy, possible open. Findings Laparoscopic appendectomy was performed. The midportion of the appendix appeared to have some evidence of necrosis and a pinpoint region of perforation. The appendix was also very friable and tore easily with gentle manipulation. The base of the appendix appeared healthy and viable. There was a lot of induration of the mesoappendix around the appendix, but no other significant abnormalities were noted. The perforation appeared to be contained to right near the appendix and there did not appear to be any distant spread of the infection. The abdomen was irrigated with about 1 L of sterile saline after the appendix was removed. The appendix was sent to the lab for pathology. Description of Procedure Procedure as well as risks, benefits, and alternatives were explained to the patient. The patient agreed to proceed. Written consent was obtained and placed in chart prior to procedure. The patient was brought back to surgical suite. She was placed supine on operating table. Time-out was done to confirm the patient and procedure. The patient was then intubated by the Anesthesia Department. Her abdomen was prepped and draped in sterile fashion using chlorhexidine prep. A 12 mm incision was made at the inferior portion of the umbilicus. Blunt dissection was carried out down to the linea alba. The linea alba was then incised using a 15 blade scalpel. Then bluntly entered into the peritoneal cavity. A 12 mm trocar was then inserted, and carbon dioxide insufflation was used to create a pneumoperitoneum. The camera was inserted and the abdomen was inspected. No immediate abnormalities were identified. The patient was then placed in slight Trendelenburg position and rotated to the left. A 5 mm incision was made in the suprapubic region in midline and a 5 mm trocar was inserted under direct visualization. A 5 mm incision was made in the left lower quadrant and a 5 mm trocar was inserted under direct visualization. The right lower quadrant was carefully inspected. The cecum was identified and then this was traced back to the appendix. The appendix was identified and grasped at the mesoappendix and lifted anteriorly. Careful blunt dissection was carried out at the base of the appendix through the mesoappendix using a [place] grasper. An Endo-KARISSA 45 mm blue load stapler was then advanced across the base of the appendix and clamped and fired. A white reload was then clamped across the mesoappendix and fired. This freed up our appendix completely. It was then placed in an EndoCatch bag and removed through the umbilical port. The staple lines were then inspected. Hemostasis appeared adequate and the staple lines appeared secure. The area was then irrigated with sterile saline. The pelvis was then carefully inspected and irrigated with sterile saline as well and the remainder of the abdomen was carefully inspected. The patient was then flattened out in bed. One final inspection was made around the abdomi
[2021-09-14 13:30] LABS: Glucose Point of Care 131 mg/dl (65-105)
[2021-09-14] MEDS: fentaNYL CITRATE INJ (*CRX) 100 MCG/2 ML VIAL 25 MCG IV PUSH ×2 (14:23→14:28)
--- NOTE | 2021-09-14 14:45 | PC.NURSE ---
Returned from OR via stretcher.
[2021-09-14] MEDS: LACTATED RINGERS 1,000 ML 100 ML IV CONT (15:27)
[2021-09-14] MEDS: HYDROcodone/acetaminophen (*CRX) 5-325 MG TABLET 1 TAB PO (17:23)
[2021-09-14] MEDS: HYDROcodone/acetaminophen (*CRX) 7.5-325 MG TABLET 1 TAB PO (21:07)
[2021-09-15] MEDS: HYDROcodone/acetaminophen (*CRX) 5-325 MG TABLET 1 TAB PO ×3 (02:37→12:27)
[2021-09-15 03:50] VITALS: BP 107/55; PULSE 84; RESP 20; TEMP 36.7; O2SAT 94
[2021-09-15 06:00] LABS: Hematocrit 34.5 % (37.0-47.0); Hemoglobin 10.9 g/dL (12.0-15.0); Mean Corpuscular HGB Conc 31.6 g/dl (32-36); Mean Corpuscular Hemoglobin 28.6 pg (26-34); Mean Corpuscular Volume 90.6 fl (80-100); Mean Platelet Volume 9.6 fl (7.4-10.4); Platelet Count Result 182 k/mm3 (150-375); Red Blood Count 3.81 M/mm3 (4.2-5.4); Red Cell Distribution Width 14.6 % (11.5-14.5); White Blood Count 10.9 K/mm3 (4.5-10.0)
[2021-09-15 06:05] LABS: Anion Gap 4 mmol/L (8-16); Blood Urea Nitrogen 13 mg/dL (7-17); Calcium 8.3 mg/dL (8.4-10.2); Carbon Dioxide 27 mmol/L (22-30); Chloride 108 mmol/L (98-107); Estimated CRCL calculation 103 ml/min; Estimated Glomerular Filt Rate > 60; Glucose 125 mg/dL (65-110); Sodium 139 mmol/L (137-145)
[2021-09-15] MEDS: ENOXAPARIN 40 MG/0.4 ML SYRINGE SUB-Q (08:24)
[2021-09-15 09:50] VITALS: BP 113/64; PULSE 73; RESP 14; TEMP 36.5; O2SAT 100
--- NOTE | 2021-09-15 11:30 | PM.PNGS ---
Progress Note: A&P Assessment and Plan (1) Acute appendicitis: Code(s): K35.80 - Unspecified acute appendicitis Status: Acute Assessment and Plan: Postop day 1 and doing well. Tolerating activity and her diet. Pain is well controlled. There was a significant amount of inflammation around the appendix and a small area of perforation, therefore we will continue another 10 days of oral antibiotics on discharge. Okay to discharge the patient from our standpoint later today. Follow up with Dr. Cueva in 2 weeks. (2) DJD (degenerative joint disease), multiple sites: Qualifiers: Osteoarthritis type: unspecified Qualified Code(s): M15.9 - Polyosteoarthritis, unspecified Code(s): M15.9 - Polyosteoarthritis, unspecified Status: Acute Assessment and Plan: Patient takes tramadol and Tylenol as needed for her joint pain. She feels the [place] is helping control her postoperative pain. Will send [place] as needed and patient will pick this up if her pain is not well controlled with [id number] medication and her tramadol. (3) Pre-diabetes: Code(s): R73.03 - Prediabetes Status: Acute (4) Overweight (BMI 25.0-29.9): Code(s): E66.3 - Overweight Status: Acute Plan I have discussed the patient's case and plan of care with Dr. Cueva. Subjective Subjective Date/Time Seen: 09/15/21 11:30 Post Op day: 1 (Laparoscopic appendectomy) Patient reports: no new complaints, feels better, tolerating a regular diet, voiding w/o difficulty, flatus, no bowel movement and afebrile Interval history: Patient seen and examined. Reports feeling well and tolerating full liquids for breakfast. She is advanced to a regular diet for lunch. She is walking in the halls and tolerating activity well. Pain is well controlled with [place]. No other complaints at this time. Review of Systems Review of Systems: All systems reviewed & are unremarkable except as noted in HPI and below Exam Const: General: comfortable, no acute distress and awake Orientation/consciousness: patient oriented x3 GI: Inspection: non-distended and incision (Dry and intact, minimal ecchymosis near periumbilical incision) GI Palp: Yes Soft to palpation, Yes Tenderness to palpation present (GI) (incisional) and No Guarding due to palpation present (GI) Auscultation: normal bowel sounds Extrem: General: no calf tenderness and no edema Psych: Mental Status: mental status grossly normal Insight: Good insight present (Psych) Objective Data Vital Signs Vital Signs: Vital Signs - 24 hr 09/14/21 13:19 09/14/21 13:30 09/14/21 13:45 Temperature 98.3 F Pulse Rate 82 73 75 Respiratory Rate 15 16 13 Blood Pressure 138/88 134/74 119/59 L Pulse Oximetry 100 100 100 Oxygen Delivery Simple Face Mask Simple Face Mask Simple Face Mask Oxygen Flow Rate 8 8 8 09/14/21 14:00 09/14/21 14:15 09/14/21 14:30 Temperature 97.1 F L Pulse Rate 79 74 70 Respiratory Rate 21 H 11 L 13 Blood Pressure 116/62 130/69 119/75 Pulse Oximetry 99 96 96 Oxygen Delivery Room Air Room Air Room Air Oxygen Flow Rate 09/14/21 14:49 09/14/21 14:45 09/14/21 15:00 Temperature 97.1 F L 97.7 F Pulse Rate 73 78 Respiratory Rate 16 16 16 Blood Pressure 121/65 120/66 Pulse Oximetry 96 94 96 Oxygen Delivery Room Air Oxygen Flow Rate 09/14/21 15:30 09/14/21 16:30 09/14/21 19:55 Temperature 97.8 F 98.6 F 97.8 F Pulse Rate 78 91 88 Respiratory Rate 16 16 20 Blood Pressure 122/60 117/60 137/72 Pulse Oximetry 97 97 95 Oxygen Delivery Oxygen Flow Rate 09/14/21 23:46 09/15/21 03:50 09/15/21 09:50 Temperature 97.6 F 98.1 F 97.7 F Pulse Rate 91 84 73 Respiratory Rate 20 20 14 Blood Pressure 113/61 107/55 L 113/64 Pulse Oximetry 95 94 100 Oxygen Delivery Oxygen Flow Rate 09/15/21 08:00 Temperature Pulse Rate Respiratory Rate Blood Pressure Pulse Oximetry Oxygen Delivery Ro
--- NOTE | 2021-09-15 12:23 | PM.DS ---
DS: Admitting Diagnosis Discharge Date 09/15/2021 Admitting Diagnosis appendicitis DS: Discharge Diagnosis Discharge Diagnosis (1) Acute appendicitis: Code(s): K35.80 - Unspecified acute appendicitis Status: Acute (2) Hyperlipidemia: Code(s): E78.5 - Hyperlipidemia, unspecified Status: Acute Plan discharged to home DS: Summary Hospital Course Reason for hospitalization: right lower quadrant pain Hospital Course: this is a 61-year-old female patient who has a history of diabetes type 2 and dyslipidemia. The patient came into the emergency room on 09/13/2021 with complaints of right lower quadrant abdominal pain and a poor appetite for several days. Her workup was found to be significant for acute appendicitis. The patient had been placed on IV Zosyn. The patient had a laparoscopic appendectomy performed by Dr. Hammad wells on 09/14/2021. Please see operative note. Today on 09/15/2021. The patient was able to eat and was passing gas without difficulty. She stated that her pain is under control. Time spent discussing smoking cessation with patient: 3 to 10 minutes Status at Discharge Cognitive/behavioral status at discharge: Alert orientated x3. Time Spent with Patient Time attestation: Total time spent providing and/or coordinating discharge services: Approximately 30 minute Exam Narrative: the patient was sitting in the chair without any difficulty. The patient stated that she is ready to go home. Const: General: cooperative, healthy appearing, comfortable, no acute distress, well developed, awake and Physically active Nutritional Appearance: average body habitus and well nourished Orientation/consciousness: oriented to person, oriented to place, oriented to time and patient oriented x3 Limitations: no limitations HENMT: Head: normal to inspection, No palpable skull fracture present, normocephalic and atraumatic Ears: hearing grossly normal bilaterally, external ears normal and TM's normal bilaterally General nose exam: Normal external nose present, Normal nares present and No nasal polyps present Mouth: Yes Normal oral and palatal mucosa present Throat: posterior oropharynx normal Eyes: General: appearance normal, both eyes and all related structures Alignment and Position: alignment normal Periorbital: periorbital findings normal Eyelids: eyelids normal Conjunctivae: conjunctivae normal Sclera: sclerae normal Cornea: corneas normal Pupils: Equal, round and reactive pupils present and Pupil accommodation reflex normal EOM: EOMs intact bilaterally Neck: Neck: normal visual inspection, full ROM, no lymphadenopathy, trachea midline and supple Thyroid: thyroid normal Lymphatic: no lymphadenopathy noted Chest: Chest palpation & inspection: normal inspection of the chest Resp: Effort & Inspection: normal respiratory effort Auscultation: clear to auscultation bilaterally Percussion: percussion normal Cardio: Palpation: normal PMI Rate: regular rate Rhythm: regular rhythm Heart sounds: S1 normal heart sound present and S2 normal heart sound present Peripheral pulses: Peripheral pulses 2+ throughout GI: Inspection: incision ( To umbilical area left lower quadrant well approximated) and other ( Bruising around umbilical area and left lower quadrant.) Auscultation: normal bowel sounds Rectal Exam: deferred Back/Spine/Pelvis: Cervical Spine: cervical ROM normal Thoracic/Lumbar Spine: thoracic and lumbar spine normal to inspection Skin: General skin exam: normal color Lesions: no lesions Rashes: no rashes Trauma: no lacerations or abrasions Wounds: no wounds Hair: normal Nails: normal Other: surgical area to umbilical left lower quadrant purple bruising Neuro: General: oriented to person, oriented to place, oriented to time and patient oriented x3 Cranial nerves: Yes Equal, round and reactive pupils present and Yes Normal hearing present Cognition (Neuro): normal cog
== END 2021-09-15 13:55 | disposition home or self-care (01) ==
LOC: ANHED 19:51 → ANH2MED 22:21
PROVIDERS: Emergency Medicine; Physician Assistant; Surgery; Admitting Provider Internal Medicine; Emergency Provider Emergency Medicine; PCP Internal Medicine; Visit Provider Internal Medicine
PROC: 0DTJ4ZZ Resection of Appendix, Percutaneous Endoscopic Approach (ICD-10-PCS; CPT 44970; principal; 2021-09-14 12:00)
DX: K35.80 Unspecified acute appendicitis (principal); E78.5 Hyperlipidemia, unspecified; R73.03 Prediabetes; M15.9 Polyosteoarthritis, unspecified; E55.9 Vitamin D deficiency, unspecified; G62.9 Polyneuropathy, unspecified; Z86.16 Personal history of COVID-19; Z98.1 Arthrodesis status; Z96.653 Presence of artificial knee joint, bilateral; Z96.642 Presence of left artificial hip joint; Z87.891 Personal history of nicotine dependence; Z79.84 Long term (current) use of oral hypoglycemic drugs; E66.3 Overweight; Z68.28 Body mass index [BMI] 28.0-28.9, adult
CPT/HCPCS: 44970; 36415; 74177; 80048; 80053; 81001; 82948; 83605; 83690; 83735; 85025; 85027; 88304; 96374; 96376; 99285; A9270; G0378; J1650; J1885; J2250; J2270; J2543; J3010; J7030; J7120; Q9967

== ENCOUNTER 2021-10-08 15:37 | Outpatient (CLI) | payer OTHER, SELFPAY ==
--- NOTE | ~2021-10-08 | XR_ITS ---
XR ankle LT min 3V 10/08/2021 15:58 Indication: Left ankle pain with effusion. Twisting injury. Procedure: 4 views left ankle Comparison: No prior studies for comparison. Findings: There is an ossific density distal to the fibula. There is moderate lateral soft tissue swe lling. There is a small ossific density adjacent to the medial malleolus. Ankle mortise intact. There is a small degenerative calcaneal enthesophyte at the plantar surface. Impression: 1: Possible avulsion fractures, age-indeterminate, of the medial and lateral malleoli. Moderate later al soft tissue swelling. Correlate for point tenderness. Reviewed, dictated and finalized at location A. Impression: 1: Possible avulsion fractures, age-indeterminate, of the medial and lateral ma lleoli. Moderate lateral soft tissue swelling. Correlate for point tenderness.
== END 2021-10-08 15:38 | disposition home or self-care (01) ==
LOC: ANHIMG 15:40
PROVIDERS: PCP Internal Medicine; Visit Provider Internal Medicine
DX: S99.912A Unspecified injury of left ankle, initial encounter (principal); M25.572 Pain in left ankle and joints of left foot; M25.472 Effusion, left ankle; M79.89 Other specified soft tissue disorders
CPT/HCPCS: 73610

== ENCOUNTER 2021-11-12 08:00 | Outpatient (NON) | payer OTHER, SELFPAY | END 2021-11-12 08:01 | disposition home or self-care (01) | LOC: ANHLAB 11-13 08:15 | PROVIDERS: PCP Internal Medicine; Visit Provider Internal Medicine Gastroenterology | DX: D12.5 Benign neoplasm of sigmoid colon (principal) | CPT/HCPCS: 88305 ==

== ENCOUNTER 2021-11-12 12:21 | Day surgery (SDC) | payer OTHER, SELFPAY ==
[2021-10-14 14:42] VITALS: BMI 28.4
[2021-11-06 09:43] VITALS: BMI 25.7
--- NOTE | 2021-11-10 09:38 | PM.HPGS ---
History of Present Illness History of Present Illness Consent: Risks, benefits, and alternatives have been discussed and questions answered. Patient agrees to proceed with procedure. Chief complaint: History of Colon Polyp Narrative: Maryanne Cedeno is a 61 year old female referred for colon cancer screening. She does have a history of polyps. Her last colonoscopy was 7 years ago. 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 Paresthesia of both hands Peripheral neuropathy Pre-diabetes Right foot pain Sprained ankle Tarsal tunnel syndrome of right side Trochanteric bursitis, right hip Varicose veins of both lower extremities Vitamin D deficiency Surgical History Surgical History H/O spinal fusion (~01/2019) 2019 History of bilateral knee arthroplasty (~04/2012) History of laparoscopic appendectomy 09/14/21 History of total left hip arthroplasty (~02/2017) Hx of total knee replacement S/P appendectomy S/P tendon repair Family History Family History Sibling Family history of obesity Patient's sister is in good health Family history of elevated blood lipids Family history of diabetes mellitus in first degree relative Mother Family history of malignant neoplasm of ovary Family history of arthritis Father Family history of malignant neoplasm Social History Social History Years smoked: 5 Smoking status: Never smoker Additional smoking assessment comments: 1 PACK/WEEK X 5 YEARS IN HER 20'S Alcohol intake: current Drinks per week: 4 Alcohol use details: 1-2 DRINKS/MONTH Substance use: never Substance use type: does not use Living arrangements: alone Spiritual care concerns: No Meds Home Medications and Allergies Home Medications Medication Instructions Recorded Confirmed Type semaglutide 3 mg tablet (Rybelsus) 6 mg PO DAILY #180 tabs 03/17/21 11/06/21 Rx rosuvastatin 10 mg tablet 10 mg PO DAILY #90 tabs 04/13/21 11/06/21 Rx tramadol 50 mg tablet 100 mg PO Q4H 11/06/21 11/06/21 History Allergies Allergy/AdvReac Type Severity Reaction Status Date / Time No Known Allergies Allergy Verified 11/06/21 09:41 Exam Resp: Auscultation: clear to auscultation bilaterally Cardio: Rate: regular rate Rhythm: regular rhythm GI: GI Palp: Yes Soft to palpation and No Tenderness to palpation present (GI) Assessment and Plan Assessment and plan (1) Colon cancer screening: Code(s): Z12.11 - Encounter for screening for malignant neoplasm of colon Status: Acute Assessment and Plan: Colonoscopy with possible biopsy or polypectomy or cautery or injection of substances.
--- NOTE | 2021-11-12 11:45 | WPDANESEPPF ---
Anes - Initial Pre Proc Eval Procedure: Operation Date: 11/12/21 14:00 Proposed Procedures p Screening Colonoscopy - Marc Espinosa MD Date/Time: 11/12/21 11:45 Surgeon: Marc Espinosa MD Pre Op Diagnosis: History of Colon Polyp Patient Data Age: 61 Gender: F Height: 1.78 m Weight: 81.4 kg Allergies Allergy/AdvReac Type Severity Reaction Status Date / Time No Known Allergies Allergy Verified 11/06/21 09:41 Home Medications Medication Instructions Recorded Confirmed Type semaglutide 3 mg tablet (Rybelsus) 6 mg PO DAILY #180 tabs 03/17/21 11/06/21 Rx rosuvastatin 10 mg tablet 10 mg PO DAILY #90 tabs 04/13/21 11/06/21 Rx tramadol 50 mg tablet 100 mg PO Q4H 11/06/21 11/06/21 History Patient hx anesthesia problems: none Family hx anesthesia problems: none Results Review: All pre-operative results and documents have been reviewed as part of the pre-operative evaluation. REPLACED BY [facility] Past Medical History Medical History (Updated 11/12/21 @ 13:25 by Dennis Lynn DO) Chronic pain daily tramadol DJD (degenerative joint disease), multiple sites Encounter for preventive health examination Hematoma History of COVID-19 Hx of colonic polyps Hyperlipidemia On usp drug therapy Paresthesia of both hands Peripheral neuropathy Pre-diabetes Right foot pain Sprained ankle Tarsal tunnel syndrome of right side Trochanteric bursitis, right hip Varicose veins of both lower extremities Vitamin D deficiency Surgical History Surgical History (Updated 10/08/21 @ 14:46 by Mirta Marino RADIO MACHINIST) H/O spinal fusion (~01/2019) 2019 History of bilateral knee arthroplasty (~04/2012) History of laparoscopic appendectomy 09/14/21 History of total left hip arthroplasty (~02/2017) Hx of total knee replacement S/P appendectomy S/P tendon repair Family History Family History Sibling Family history of obesity Patient's sister is in good health Family history of elevated blood lipids Family history of diabetes mellitus in first degree relative Mother Family history of malignant neoplasm of ovary Family history of arthritis Father Family history of malignant neoplasm Social History Social History Years smoked: 5 Smoking status: Never smoker Additional smoking assessment comments: 1 PACK/WEEK X 5 YEARS IN HER 20'S Alcohol intake: current Drinks per week: 4 Alcohol use details: 1-2 DRINKS/MONTH Substance use: never Substance use type: does not use Living arrangements: alone Spiritual care concerns: No Anes - Eval Final PreProcedure Day of Procedure 11/12/21 11:45 Patient weight: overweight Heart: regular rate and rhythm Lungs: clear to auscultation Airway: Mallampati scale class II Neurological: alert and oriented Last oral intake: >/= 8 hours ASA classification: III Emergent: no Anesthetic plan: proceed Anesthesia type and monitoring: general GIVS and standard monitoring Results Review: All pre-operative results and documents have been reviewed as part of the pre-operative evaluation. Informed Consent: The patient's anesthetic plan and its attendant risks and benefits were discussed with the patient/family/POA. Questions were solicited and answers provided to the satisfaction of the patient/family/POA.
[2021-11-12 12:45] VITALS: BP 139/88; PULSE 72; RESP 18; TEMP 37; O2SAT 99
[2021-11-12] MEDS: LACTATED RINGERS 1,000 ML 150 ML IV CONT (13:05)
[2021-11-12 13:14] LABS: Glucose Point of Care 100 mg/dl (65-105)
[2021-11-12 13:46] VITALS: BMI 27.6
[2021-11-12 14:18] VITALS: BP 136/74; PULSE 72; RESP 18; O2SAT 99
[2021-11-12 14:28] VITALS: BP 139/80; PULSE 66; RESP 18; O2SAT 99
[2021-11-12 14:38] VITALS: BP 136/76; PULSE 66; RESP 18; O2SAT 99
--- NOTE | 2021-11-12 14:43 | WPDANESPN ---
Anes - Prog Note Post-Op Date/Time: 11/12/21 14:43 Cardiovascular status: normal Respiratory status: normal Airway patency: baseline Mental status: baseline Post-Op hydration status: normal Vital Signs: Last Vital Signs Temp 37.0 C 11/12/21 12:45 Pulse 66 11/12/21 14:28 Resp 18 11/12/21 14:28 BP 139/80 11/12/21 14:28 Pulse Ox 99 11/12/21 14:28 O2 Del Method Room Air 11/12/21 14:28 Pain Score (VAS): 0 I/O: Intake & Output 11/11/21 11/12/21 11/12/21 23:59 07:59 15:59 Intake Total 400 Balance 400 11/12/21 13:10 POC Capillary Glucose 100 Post-procedural complaints: none Patient Feedback: Patient satisfied with anesthetic care. Other Findings: Patient vital signs back to baseline. Patient denies nausea and vomiting. Patient's pain under control. Patient OK for discharge.
== END 2021-11-12 14:53 | disposition home or self-care (01) ==
PROVIDERS: PCP Internal Medicine; Visit Provider Internal Medicine Gastroenterology
PROC: 0DJD8ZZ Inspection of Lower Intestinal Tract, Via Natural or Artificial Opening Endoscopic (ICD-10-PCS; CPT 45378; principal; 2021-11-12 14:00)
DX: Z86.010 Personal history of colon polyps (principal)
CPT/HCPCS: 45385

== ENCOUNTER 2022-02-04 16:12 | Outpatient (CLI) | payer OTHER, SELFPAY ==
--- NOTE | ~2022-02-04 | MM_ITS ---
EXAMINATION: MM scrn angelika implant BI w soni HISTORY: Screening mammogram, family history of breast cancer in her mother. TECHNIQUE: Craniocaudal and mediolateral oblique 3-D tomosynthesis images with implant displacement a nd synthetic 2-D images were generated. Craniocaudal and mediolateral oblique views of the breasts wi thout implant displacement were obtained using full field digital mammography. CAD analysis was submi tted and interpreted. COMPARISON: 10/29/2020, 04/11/2019, 03/21/2018 BREAST PARENCHYMAL COMPOSITION: There are scattered areas of fibroglandular density. FINDINGS: RIGHT BREAST: There is no evidence of suspicious mass, calcification, or architectural distortion to suggest malignancy. There has been no significant interval change. LEFT BREAST: An asymmetry is present in the middle third of the outer breast best appreciated 7.5 cm from the nipple on the craniocaudal view without implant displacement. IMPRESSION: 1. Left breast asymmetry. 2. Additional mammographic views and possible breast ultrasound are recommended. BI-RADS Category 0: Incomplete: Needs additional imaging evaluation. Reviewed, dictated and finalized at location A. ST SPLITTER IMPRESSION: 1. Left breast asymmetry. 2. Additional mammographic views and possible breast ultrasound are recommended . BI-RADS Category 0: Incomplete: Needs additional imaging evaluation.
== END 2022-02-04 16:13 | disposition home or self-care (01) ==
LOC: ANHIMG 16:13
PROVIDERS: PCP Internal Medicine; Visit Provider Obstetrics & Gynecology
DX: Z12.31 Encounter for screening mammogram for malignant neoplasm of breast (principal); R92.8 Other abnormal and inconclusive findings on diagnostic imaging of breast
CPT/HCPCS: 77063; 77067

== ENCOUNTER 2022-03-09 13:09 | Outpatient (CLI) | payer OTHER, SELFPAY ==
--- NOTE | ~2022-03-09 | MMUS_ITS ---
EXAMINATION: MM diag angelika implant LT w soni, US breast LT complete HISTORY: Left breast asymmetry reported in middle third of outer breast 7.5 cm from nipple on implant craniocaudal view of 02/04/2022 TECHNIQUE: Additional 3-D tomosynthesis images of the left breast were performed and synthetic 2-D im ages were generated. CAD analysis was submitted and interpreted. Complete left breast ultrasound including all 4 quadrants and subareolar area was performed. COMPARISON: 02/04/2022 bilateral implant screening mammogram MAMMOGRAM FINDINGS: No suspicious mass or architectural distortion is detected. Scattered benign calc ifications. ULTRASOUND FINDINGS: No suspicious mass or shadowing, cyst or other significant sonographic finding i s noted. IMPRESSION: 1. No mammographic evidence of malignancy 2. Routine mammographic screening is recommended BI-RADS Category 2: Benign finding(s). Reviewed, dictated and finalized at location A. LOCK WAISTLINE JOINER IMPRESSION: 1. No mammographic evidence of malignancy 2. Routine mammographic screening is recommended BI-RADS Category 2: Benign finding(s).
== END 2022-03-09 13:10 | disposition home or self-care (01) ==
PROVIDERS: PCP Internal Medicine; Visit Provider Obstetrics & Gynecology
DX: R92.8 Other abnormal and inconclusive findings on diagnostic imaging of breast (principal)
CPT/HCPCS: 76641; 77061; 77065; G0279

== ENCOUNTER 2023-04-29 14:29 | Outpatient (CLI) | payer OTHER, SELFPAY ==
--- NOTE | ~2023-04-29 | MM_ITS ---
EXAMINATION: MM scrn angelika implant BI w soni HISTORY: Screening mammogram TECHNIQUE: Craniocaudal and mediolateral oblique 3-D tomosynthesis images with implant displacement a nd synthetic 2-D images were generated. Craniocaudal and mediolateral oblique views of the breasts wi thout implant displacement were obtained using full field digital mammography. CAD analysis was submi tted and interpreted. COMPARISON: Comparison to multiple prior studies sequentially, with oldest reviewed study dated 04/2016. BREAST PARENCHYMAL COMPOSITION: There are scattered areas of fibroglandular density. FINDINGS: There is no evidence of suspicious mass, calcification, or architectural distortion to sugg est malignancy in either breast. There has been no suspicious interval change. IMPRESSION: 1. No mammographic evidence of malignancy. 2. Recommend routine screening mammography in one year. BI-RADS Category 1: Negative Reviewed, dictated and finalized at location A. GER AREA
== END 2023-04-29 14:30 | disposition home or self-care (01) ==
PROVIDERS: PCP Internal Medicine; Visit Provider Obstetrics & Gynecology
DX: Z12.31 Encounter for screening mammogram for malignant neoplasm of breast (principal)
CPT/HCPCS: 77063; 77067

== ENCOUNTER 2025-02-18 11:12 | Outpatient (CLI) | payer BC, SELFPAY ==
--- NOTE | ~2025-02-18 | DEXA_ITS ---
Bone Density Report Name: VAISHALI ROCA Age: 64 Sex: Female Ethnicity: White Date of : 1960 Indication: postmenopausal; screening for osteoporosis; height loss; prior fracture; Referring Provider: ROSETTA RUSSELL Study: Bone densitometry was performed. Exam Date: February 18, 2025 Accession number: [id number] Bone Density: Region BMD T-score Z-score Classification AP Spine(L1, L2) 0.988 0.1 1.7 Normal Femoral Neck (Right) 0.887 0.3 1.8 Normal Total Hip (Right) 1.025 0.7 1.8 Normal World Health Organization criteria for BMD impression classify patients as: Normal (T-score at or above -1.0), Osteopenia (T-score between -1.0 and -2.5), or Osteoporosis (T-score at or below -2.5). 10-year Fracture Risk: FRAX not reported because: All T-scores for Spine Total, Hip Total, Femoral Neck at or above -1.0 Prior hip or vertebral fracture Clinical Information Provided by Patient: Have had a previous hip or vertebral fracture Has had a low trauma fracture Has used the following medications: Vitamin D Patient maximum height was 72 Menopause Age: 51 Drinks caffeinated beverages Onset of menses at age 14 Number of children 2 Impression: The patient has normal bone mass. The patient has risk factors, including: previous fracture. Discussion: INCREASED RISK OF FRACTURE DUE TO HISTORY OF FRACTURE. The patient's previous fracture puts the patient at high risk of a future fracture. In untreated patients, the risk of osteoporotic fracture increases approximately two-fold for each 1.0 SD decrease in T-score. Low bone density is not the only risk factor for fracture; also consider factors such as patient's age, frailty or poor health, risk of falling, risk of injury, previous osteoporotic fracture, family history of osteoporosis, cigarette smoking, low body weight, etc. Not everyone with a low trauma fracture has osteoporosis; osteomalacia and other metabolic bone disorders should also be considered. Patients who have osteoporosis should be evaluated for specific diseases and conditions (secondary causes) that may cause or contribute to bone loss and fracture risk. National Osteoporosis Foundation (NOF) recommends pharmacologic intervention for patients with a prior hip or vertebral fracture regardless of BMD T-score. The patient should follow a healthful lifestyle (good nutrition with adequate calcium and vitamin D, and appropriate weight-bearing exercise). Follow-Up: Consider a repeat BMD and Vertebral Fracture Assessment (VFA) exam in 2 years or sooner if medically necessary, to reassess this patient's status. Reported by: DAVID on 02/18/2025 11:55:00 AM. Reviewed, dictated and finalized at location A.
--- OUTSIDE RECORDS SUMMARY | 2025-02-18 13:07 | XMS_ITS | Clinical Summary ---
Author Organization [facility] Address [address] [place] [address] Care Team Providers Care Millwright Apprentice Name Role Phone Juan Ramon Cool MD Primary Care Provider [phone] Allergies No known active allergies Medications multivitamin capsule Take 1 capsule by mouth daily Active cholecalciferol (VITAMIN D-3) 2000 unit capsule 2,000 Units daily Active ALPRAZolam (XANAX) 0.5 mg tablet Take 0.5 mg by mouth once Take 1 tablet 1 hr prior to leaving your house and bring the add'l tablet with you and take when advised by the staff. 11/16/2019 Active traMADoL (ULTRAM) 50 mg tablet TAKE 2 TS PO EVERY 4 HOURS NEEDED FOR PAIN 12/01/2019 Active rosuvastatin (CRESTOR) 10 mg tablet Take 10 mg by mouth daily Active Active Problems Problem Noted Date Diagnosed Date Status post lumbar spinal fusion 03/25/2020 Assessment & Plan (05/05/2021 2:43 PM PURCHASING/RECEIVING): Ms. Cedeno is doing very well after posterior lumbar decompression fusion at L4-5 in January 2019. She denies any back pain, leg pain, numbness, tingling or weakness. She is very pleased with her result and is very active. She rides 150 miles on her [employer] per month. She had a repair of her tendon in her foot in January of 2022. We will not set up a scheduled appointment, but I would be happy to see her back at any point on as-needed basis. Assessment & Plan (03/25/2020 2:12 PM PURCHASING/RECEIVING): Ms. Cedeno is clinically doing well after L4-5 decompression and fusion in January of 2019. She has some hip arthralgia on the right and is undergone recent tendon surgery in her right ankle. She reports that she was very active apart from these issues. I plan to see her back in 1 year's time with AP and lateral lumbar spine films at that time. Varicose veins of bilateral lower extremities wi th pain 12/26/2018 Assessment & Plan (12/26/2018 5:13 PM CDT): Patient's symptoms venous insufficiency with painful varicose veins bilateral lower extremities. Have recommended initial trial of knee-high compression therapy, leg elevation and exercise. Will obtain lower extremity venous reflux study as well. Follow-up 3 months Other chronic pain 09/07/2018 Need for prophylactic antibiotic 02/02/2017 Arthralgia of hip 12/01/2016 Resolved Problems Problem Noted Date Diagnosed Date Resolved Date Lumbar post-laminectomy syndrome 03/05/2019 03/25/2020 Assessment & Plan (08/07/2019 1:06 PM CDT): Ms. Cedeno is doing extremely well after posterior lumbar decompression fusion at L4-5 with relief of her radicular leg pain. She has gone from 10 Neurontin pills per day to three per day and continues to slowly wean down. I plan to see her back in six months time with AP and lateral lumbar spine films at that time. We will check a vitamin-D level. Assessment & Plan (04/04/2019 11:32 AM PURCHASING/RECEIVING): PLAN: - Continue activity restrictions as outlined prior to surgery. - After 6 weeks start physical therapy/aqua therapy/home exercise program - Continue brace. - After 6 weeks, patient may resume NSAIDs, may increase activity as tolerated, wean off brace. 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 Mock in 4.5 months with Flexion/Extension Lumbar spine films and Vitamin D check Assessment & Plan (03/05/2019 12:03 PM PURCHASING/RECEIVING): Ms. Cedeno is doing well following surgery and has resolution of her right leg pain. PLAN: - Continue activity restrictions as outlined prior to surgery. - Renew medications: Continue Vitamin D 50,000 weekly - Continue brace. -Increase walking as tolerated. 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 FOLLOW UP APPT: With Karlie MALONE on April 04, 2019 with Lumbar AP/LAT Spine xrays Neurogenic claudication due to lumbar spinal stenosis 01/17/2019 03/25/2020 Overview (01/17/2019): Added automatically from request for surgery [id number] Spinal stenosis at L4-L5 level 09/07/2018 08/07/2019 Assessment & Plan (01/09/2019 3:36 PM PURCHASING/RECEIVING): Ms. Cedeno has lumbar stenosis and right L5 radiculopathy with motor weakness. I will review the actual MRI imaging tomorrow when she brings the films back. Depending on the results she will it likely benefit from a right L4-5 microdiskectomy versus a lumbar decompression and fusion at L4-5. We will call her with the results and recommendations once I have reviewed the films. DDD (degenerative disc disease), lumbar 09/07/2018 03/25/2020 Lumbar radiculopathy 09/07/2018 021 Immunizations Immunization Administration Dates Next Due Influenza, Quadrivalent, Spl it, Preservative Free, Intramuscular 02/24/2019 Influenza, Trivalent, IM (MDV) 02/05/2012 Surgical History Surgery Date Site/Laterality Comments REPLACEMENT TOTAL KNEE BILATERAL 02/29/2012 - 02/27/2013 TOTAL HIP ARTHROPLASTY 02/28/2017 - 02/27/2018 Left BREAST SURGERY Bilateral Implants JOINT REPLACEMENT POSTERIOR FUSION LUMBAR SPINE 01/28/2019 - 02/27/2019 S/P L4-5 PSF (Nish) Medical History Medical History Date Comments Arthritis Osteoporosis Varicose veins of both lower extremities Neurogenic claudication due to lumbar spinal volodymyr nosis Family History Medical History Relation Name Comments Diabetes Brother 1 Family history of diabetes mellitus - (Added by TW Conv) Hypertension Brother 2 Family history of hypertension - (Added by TW Conv) Multiple myeloma Father Arthritis Mother Family history of arthritis - (Added by TW Conv) Uterine cancer Mother Family histor y of malignant neoplasm - (Added by TW Conv) Multiple sclerosis Sister Relation Name Status Comments Brother 1 Brother 2 Father Mother Sister Social History Tobacco Use Types Packs/Day Years Used Date Smoking Tobacco: Former Cigarettes 1 04/15/1989 - 02/12/1995 Smokeless Tobacco: Never Alcohol Use Standard Drinks/Week Comments Yes 1 (1 standard drink = 0.6 oz pur e alcohol) 1-2 times per week PHQ-2 Answer Date Recorded PHQ-2 Score 0 01/09/2019 Comments No Sex and Gender Information Value Date Recorded Sex Assigned at Not on file Legal Sex Female 12:19 PM PURCHASING/RECEIVING Gender Identity Not on file Sexual Orientation Not on file Last Filed Vital Signs Vital Sign Reading Time Taken Comments Blood Pressure 143/86 04/10/2019 3:19 PM PURCHASING/RECEIVING Pulse 66 04/10/2019 3:19 PM PURCHASING/RECEIVING Temperature 37.4 C (99.3 F) 04/10/2019 3:19 PM PURCHASING/RECEIVING Respiratory Rate 12 03/25/2020 1:34 PM PURCHASING/RECEIVING Oxygen Saturation 100% 02/24/2019 11:50 AM PURCHASING/RECEIVING Inhaled Oxygen Concentration - - Weight 86.6 kg (191 lb) 03/25/2020 1:34 PM PURCHASING/RECEIVING Height 177.8 cm (5' 10) 03/25/2020 1:34 PM PURCHASING/RECEIVING Body Mass Index 27.41 03/25/2020 1:34 PM PURCHASING/RECEIVING Plan of Treatment Health Maintenance Due Date Last Done Comments Breast Cancer Screening-Mammogram 1960 Cervical Cancer Screening 1960 Colon Cancer Screening-Colonoscopy 1960 Hepatitis C Screening 1960 DTaP/Tdap/Td Vaccine (1 - Tdap) 1972 Hepatitis B Screening 1979 Regular Well Visit/Exam 18-64 1979 Zoster Vaccine (1 of 2) 2011 Depression Screening 01/10/2020 01/09/2019, 01/09/2019 Influenza Vaccine (#1) 2024 9, 02/05/2012 Pneumococcal vaccine <65 Aged Out No longer eligible based on patient's age to complete this topic Goals Goal Patient Goal Type Associated Problems Recent Progress Patient-Stated? Author CCM Chronic Pain Care Plan Chronic Care Management Improving( 8:42 AM CDT) Krystle Carr, RN Note: Problem: Chronic Pain Goals: 1. Minimize further functional decline 2. Maximize quality of life 3. Control pain Strategies: - Activity/exercise program recommendation - Conservative stepwise pain medicine strategy with multi-disciplinary approach - Recommend healthy lifestyle strategies and compensatory methods as needed Medical Devices Implanted Type Area Health Information Internship Device Identifier Shelf Expiration Date Model / Serial / Lot Knee Replacement Bilateral: Knee Hip Replacement Left: Hip Breast Implant Bilateral: Breast [employer] [id number] Inqu Paste Mix Plus Systems Developer 10cc Bone Graft Hyaluronic Acid Poly - [id number] Implanted:Qty: 1 on 02/23/2019 by Jerome Mock MD at [facility] N/A: Spine Lumbar [employer] 09/26/2020 [id number] / / [id number] Core Link [id number] Oxford 6.5mm 40mm Spine Pedicle Screw Bone 5500 Series - [id number] Implanted:Qty: 4 on 02/23/2019 by Jerome Mock MD at [facility] N/A: Spine Lumbar Core Link [id number] / / Core Link [id number] Oxford Screw Set 5500 Series - [id number] Implanted:Qty: 4 on 02/23/2019 by Jerome Mock MD at [facility] N/A: Spine Lumbar Core Link [id number] / / Core Link [id number] Oxford 5.5mm 40mm Line Prebent Atilio Spinal Nonsterile 5500 Series - [id number] Implanted:Qty: 2 on 02/23/2019 by Jerome Mock MD at [facility] N/A: Spine Lumbar Core Link [id number] / / Insurance U[employer] [facility] H[facility]/PPO Address: [address] [address] [place] [address] [facility][note 3] [address] [facility]PP[facility] Address: [address] [address] [place] [address] [facility]PPO Address: [address] [address] [place] [id number] [facility] Address: [address] [address] Advance Directives For more information, please contact: [phone] * Full Code (Latest Code Status on File) Date Activated Date Inactivated Comments 02/23/2019 2:16 PM 02/24/2019 5:01 PM Care Teams Millwright Apprentice Relationship Specialty Start Date End Date Juan Ramon Cool MD PCP - General 11/15/16
== END 2025-02-18 11:13 | disposition home or self-care (01) ==
LOC: ANHFOHIMG 11:14
PROVIDERS: PCP Internal Medicine; Visit Provider Internal Medicine
DX: Z78.0 Asymptomatic menopausal state (principal)
CPT/HCPCS: 77080